=== PATIENT | male | born 1975 | race Caucasian/White ===

== ENCOUNTER → 2019-11-19 09:31 | Outpatient (CLI) | payer OTHER, SELFPAY ==
[2019-11-19 09:30] VITALS: BMI 29.0
--- NOTE | 2019-11-19 09:32 | RAD_ITS ---
STUDY: X-RAY - RIGHT WRIST REASON FOR EXAM: Male, 44 years old. 2.5 weeks ago felt a cramp in hand/wrist, pulled thumb to relieve cramp and has had pain in wrist ever since TECHNIQUE: 3 view(s) of the wrist were obtained. COMPARISON: None. FINDINGS: Normal visualized distal radius and ulna. Normal radiocarpal articulation. Normal distal radioulnar articulation. Normal carpal bones. Normal carpal articulations. Normal carpometacarpal articulation of the thumb. Normal second through fifth carpometacarpal articulations. Normal visualized metacarpal bones. Soft tissue swelling. RAD/Wrist min 3 Views IMPRESSION: Soft tissue swelling. Electronically Signed: Lloyd Lynn, at 10:32 EDT , Service support ,
== END ==
PROVIDERS: Referring Provider Physician Assistant; Visit Provider Physician Assistant
DX: M25.531 Pain in right wrist (principal)
CPT/HCPCS: 73110

== ENCOUNTER → 2022-04-24 | Outpatient (CLI) | payer OTHER, SELFPAY ==
--- NOTE | 2022-04-24 06:46 | MRI_ITS ---
STUDY: MRI LEFT HIP REASON FOR EXAM: Male, 46 years old. Chronic pain radiating into groin and knee. TECHNIQUE: Standardized fat and water weighted pulse sequences were obtained in all 3 orthogonal planes. COMPARISON: Hip x-rays dated March 26, 2022. FINDINGS: Mild loss of articular cartilage of both hips with small hip effusions (coronal series 5 images 12-22). . Normal gluteus minimus, medius and iliopsoas tendons and distal insertions. Bilateral greater trochanteric bursitis (coronal series 5 image 16). Normal superior and inferior pubic rami. Normal pubic symphysis. Normal ischial tuberosity. Normal origin of the hamstring tendons. Normal visualized iliac wing, sacroiliac joint, and sacral ala. Normal visualized soft tissue structures of the pelvis. MRI/Lower Ext Joint Only (Routine) IMPRESSION: Bilateral greater trochanteric bursitis. Mild arthrosis of both hips with small hip effusions. No other abnormality. Electronically Signed: Stewart Bowens, at 10:51 EST ,
== END | disposition home or self-care (01) ==
PROVIDERS: PCP Family Medicine; Referring Provider Chiropractor; Visit Provider Chiropractor
DX: M16.12 Unilateral primary osteoarthritis, left hip (principal)
CPT/HCPCS: 73721

== ENCOUNTER → 2024-02-08 | Outpatient (CLI) | payer OTHER, SELFPAY ==
--- NOTE | 2024-02-08 07:06 | MRI_ITS ---
INDICATION: pain, rule out LM tear EXAMINATION: MRI - RIGHT MR Knee W/O Contrast TECHNIQUE: Multiplanar and multisequence MR images of the RIGHT knee without contrast. IV Contrast Dosage and Agent: None. COMPARISON: Knee radiograph December 21, 2023. FINDINGS: BONE: No fracture or abnormal bone marrow signal. JOINT: Small effusion. No gross synovial hypertrophy, or intra-articular body. MUSCLES: Unremarkable. MENISCI: Medial meniscus is intact. Lateral meniscus posterior root ill-defined increased inferior T2 signal along the inferior ring, sagittal proton density image 21 and sagittal T2 image 12, coronal T2 image 11 CRUCIATE LIGAMENTS: Anterior and posterior cruciate ligaments are intact. COLLATERAL LIGAMENTS: Medial collateral ligament and lateral collateral ligamentous complex, inclusive of the popliteal tendon, are intact. CARTILAGE: Patellar apex full-thickness chondral fissure with mild medial facet subchondral edema.. OTHER SOFT TISSUES: Small Dhaliwal''s cyst 1.4 x 0.4 1.6 cm. Pes anserine tendons, semimembranosus, gastrocnemius tendons are intact. MRI/Lower Ext Joint Only (Routine) IMPRESSION: Lateral meniscal posterior root ill-defined increased signal extending to the inferior inner ring margin, nonspecific in appearance, possibly representing complex partial tear, contusion, or intrasubstance degeneration. Small knee joint effusion. 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 Small Dhaliwal''s cyst. Electronically Signed: Brandon Michael MD at 8:40 EDT ,
== END | disposition home or self-care (01) ==
LOC: MRI 07:03
PROVIDERS: PCP Family Medicine; Referring Provider Orthopaedic Surgery Sports Medicine; Visit Provider Orthopaedic Surgery Sports Medicine
DX: M25.561 Pain in right knee (principal)
CPT/HCPCS: 73721

== ENCOUNTER 2024-05-08 10:05 | Day surgery (SDC) | payer OTHER, SELFPAY ==
--- NOTE | 2024-04-29 14:04 | PAT.ANE_ITS ---
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 When Was Last Pacemaker Check QUESTION #4 FULL TEXT: You/Your Family Experience fever (hyperthermia) with Anesthesia Last Oral Intake Last Oral intake: Last Oral Intake NPO since Meds taken in AM with sips of water? Meds patient instructed to take am of surgery PONV PONV - field marketing director: PONV - field marketing director Female No 04/29/24 10:00 HX of Motion Sickness No 04/29/24 10:00 HX of N/V After Surgery No 04/29/24 10:00 Non-Smoker Yes 04/29/24 10:00 Duration of Surgery greater Yes 04/29/24 10:00 than 60 minutes Number of Risk Factors 2 04/29/24 10:00 PONV Score Moderate Risk 04/29/24 10:00 Respiratory Assessment Respiratory Assessment - field marketing director: Respiratory Tract Infection Hx - field marketing director Hx Respiratory Tract Infection No 04/29/24 10:00 STOP Sleep Apnea STOP Sleep Apnea - field marketing director: STOP Sleep Apnea - field marketing director Hx Hypertension No 04/29/24 10:00 Hx Sleep Apnea No 04/29/24 10:00 CPAP BIPAP Do you snore loudly (louder No 04/29/24 10:00 than talking or can be heard Do you often feel tired/ No 04/29/24 10:00 fatigued/ sleepy during daytime? Has anyone observed you stop No 04/29/24 10:00 breathing during sleep? STOP Results Negative 04/29/24 10:00 QUESTION #5 FULL TEXT : Do you snore loudly (louder than talking or can be heard through closed doors)? 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 Specify any problems Hx of Preganancy in last 3 N/A 04/29/24 10:00 Months Nurse Filling Out Transfusion NBUCHER 04/29/24 10:00 & Questions: Date: 04/29/24 04/29/24 10:00 Time: 10:01 04/29/24 10:00 Patient unable to answer at this time (ie. confused, unrespo /Reproduction History /Reproductive History - field marketing director: /Reproductive Hx- field marketing director Hx Now No 04/29/24 10:00 Gestational Age (in weeks): EDC: Hx Hx Para Hx Section SAB No 04/29/24 10:00 [facility] Medical History (Updated 04/29/24 @ 10:07 by Asya Nuñez) Wears glasses History of steroid therapy Seizures Cancer Non-smoker Cardiology follow-up encounter History of echocardiogram History of stress test Effusion, right knee Chondromalacia, right knee Tear of lateral meniscus of right knee Synovial cyst of popliteal space [Dhaliwal], right knee Right knee pain Right hip pain Home Medications ?Medication ?Instructions ?Recorded ?Last Taken ?Type acetaminophen 325 mg capsule 650 mg PO Q6H PRN pain 04/29/24 Unknown History diphenhydramine HCl 50 mg capsule 50 mg PO QHS 04/29/24 Unknown History (Sleep Aid (diphenhydramine)) psyllium husk 0.4 gram capsule 0.4 g PO DAILY 04/29/24 Unknown History (Daily Fiber) Allergy/AdvReac Type Severity Reaction Status Date / Time No Known Allergies Allergy Verified 04/29/24 09:58 Surgical History (Updated 04/29/24 @ 10:07 by Asya Nuñez) History of hand surgery History of meniscectomy of left knee (~2000) History of neck surgery (~2001) Social History household members: spouse Smoking Status: Never smoker alcohol intake: current alcohol intake frequency: holidays/special occasions only Audit: Pertinent Findings Pertinent Findings EKG Perinent findings: NSR 94 Stress test pertinent findings: spect 2020neg Echo (EF%) pertinent findings: EF 55% 02/19/20 Recommendation Anesthesia Recommendation Anesthesia recommendation: OPTIMIZED for anesthesia
[2024-05-08] VITALS (9 sets, daily range): BP systolic 111–137; BP diastolic 72–91; PULSE 60–84; RESP 14–16; TEMP 36.1–36.6; O2SAT 92–100; BMI 30.3
[2024-05-08] MEDS: 0.9% Normal Saline (1000mL) 1,000 ML 15 ML IV (10:47)
--- NOTE | 2024-05-08 11:34 | PCM.PRE.AN2 ---
ASA Classification* ASA Classification ASA Classification: 2 Assessment & Plan Anesthesia* Anesthesia Assessment Anesthesia Assessment: Discussed sedation and/or anesthesia options, risks, benefits, and alternatives with patient/parents/legal guardian/POA. Questions invited. The patient/parents/legal guardian/POA seems to understand and agrees to proceed with anesthesia plan. Reviewed the physical assessment, medical history, allergy history and patient home medications list prior to surgery/procedure/anesthetic and documented any changes. Performed airway and anesthesia risk assessments. Anesthesia Type Anesthesia Type: General History Source History Obtained from:: Patient and Chart Anesthesia Focused Assessment* Temperature: 97.9 F Pulse Rate: 63 Blood Pressure: 137/88 Respiratory Rate: 16 Pulse Ox: 98 Oxygen Delivery Method: Room Air Airway Assessment Mouth opens: >3 cm Mallampati Score: I Teeth Condition: Intact Neck Range of motion (ROM): Full ROM Focused Labs Anesthesia Preop lab: CBC CHEMISTRY COAG Pre-Assessment Diagnosis/Proposed Procedure Planned Operative Procedure(s): (R) Right knee Arthroscopy, lateral meniscus repair, possible partial meniscectomy Anesthesia History 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 When Was Last Pacemaker Check QUESTION #4 FULL TEXT: You/Your Family Experience fever (hyperthermia) with Anesthesia Last Oral Intake Last Oral intake: Last Oral Intake NPO since 06:30 05/08/24 10:36 Meds taken in AM with sips of No 05/08/24 10:36 water? Meds patient instructed to take am of surgery Any additional information?: Yes NPO since: 06:30 (Patient water and coffee at 6:30 AM.) PONV PONV - distributor sales manager: PONV - distributor sales manager Female No 04/29/24 10:00 HX of Motion Sickness No 04/29/24 10:00 HX of N/V After Surgery No 04/29/24 10:00 Non-Smoker Yes 04/29/24 10:00 Duration of Surgery greater Yes 04/29/24 10:00 than 60 minutes Number of Risk Factors 2 04/29/24 10:00 PONV Score Moderate Risk 04/29/24 10:00 Height & Weight Height & Weight: Anesthesia: Height & Weight Height 6 ft 1 in 05/08/24 10:36 Weight: 104.3 kg 05/08/24 10:36 Body Mass Index (BMI) 30.3 05/08/24 10:36 Respiratory Assessment Respiratory Assessment - distributor sales manager: Respiratory Tract Infection Hx - distributor sales manager Hx Respiratory Tract Infection No 04/29/24 10:00 STOP Sleep Apnea STOP Sleep Apnea - distributor sales manager: STOP Sleep Apnea - distributor sales manager Hx Hypertension No 04/29/24 10:00 Hx Sleep Apnea No 04/29/24 10:00 CPAP BIPAP Do you snore loudly (louder No 04/29/24 10:00 than talking or can be heard Do you often feel tired/ No 04/29/24 10:00 fatigued/ sleepy during daytime? Has anyone observed you stop No 04/29/24 10:00 breathing during sleep? STOP Results Negative 04/29/24 10:00 QUESTION #5 FULL TEXT : Do you snore loudly (louder than talking or can be heard through closed doors)? 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 Specify any problems Hx of Preganancy in last 3 N/A 04/29/24 10:00 Months Nurse Filling Out Transfusion NBUCHER 04/29/24 10:00 & Questions: Date: 04/29/24 04/29/24 10:00 Time: 10:01 04/29/24 10:00 Patient unable to answer at this time (ie. confused, unrespo /Reproduction History /Reproductive History - distributor sales manager: /Reproductive Hx- distributor sales manager Hx Now No 04/29/24 10:00 Gestational Age (in weeks): EDC: Hx Hx Para Hx Section SAB No 04/29/24 10:00 Active Medications Active Medications: Current Medications Generic Name Dose Route Start Last Admin Trade Name Freq PRN Reason Stop Dose Admin Cefazolin Sodium 2 gm/ N/A 20 mls @ 400 mls/hr 05/08/24 11:50 IV 05/08/24 11:52 PREOP ONE Sodium Chloride 1,000 mls @ 15 mls/hr 05/08/24 10:15 05/08/24 10:47 IV 05/13/24 23:34 15 mls/hr .Q48H GENIE Administration Protocol [facility] Medical History Wears glasses History of steroid therapy Seizures Cancer Non-smoker Cardiology follow-up encounter History of echocardiogram History of stress test Effusion, right knee Chondromalacia, right knee Tear of lateral meniscus of right knee Synovial cyst of popliteal space [Dhaliwal], right knee Right knee pain Right hip pain Home Medications ?Medication ?Instructions ?Recorded ?Last Taken ?Type acetaminophen 325 mg capsule 650 mg PO Q6H PRN pain 04/29/24 Unknown History diphenhydramine HCl 50 mg capsule 50 mg PO QHS 04/29/24 Unknown History (Sleep Aid (diphenhydramine)) psyllium husk 0.4 gram capsule 0.4 g PO DAILY 04/29/24 Unknown History (Daily Fiber) Allergy/AdvReac Type Severity Reaction Status Date / Time No Known Allergies Allergy Verified 05/08/24 10:33 Surgical History History of hand surgery History of meniscectomy of left knee (~2000) History of neck surgery (~2001) Social History household members: spouse Smoking Status: Never smoker alcohol intake: current alcohol intake frequency: holidays/special occasions only Review of Systems (Anesthesia) ROS Narrative System reviewed and no additional complaints, except as documented.
--- NOTE | 2024-05-08 12:01 | PCM.HP.STD ---
HPI - General HPI Narrative BEST FERGUSON, is a 48 M who presents for right knee arthroscopy lateral meniscus repair possible partial meniscectomy. no changes to h and p. right knee marked. rab, post op instructions, possible surgical decisions intra op, and narcotic counselling. ok to proceed. no further questions or concerns. MR#: [id number] Acct: [id number] Name: BEST FERGUSON Rep #: [id number] : 1975 Provider: Dr. Dick Webber MD Age/Sex: 48/M Location: [facility] [place] Status: Signed Intake Vital Signs 11/18/2008:30 Height 6 ft 1 in Intake Visit Reasons: RIGHT KNEE Chief Complaint: right knee Accompanied by: Self Is patient in pain?: Yes Pain scale (1-10): 8 Allergies No Known Allergies Allergy (Unverified 03/31/24 15:47) Medications ?Medication ?Instructions ?Recorded ?Confirmed ?Type prednisone 5 mg tablets in a dose See Rx Instructions PO PER PKG DIR 03/31/24 03/31/24 Rx pack #48 tabs PFSH Medical History Effusion, right knee Chondromalacia, right knee Tear of lateral meniscus of right knee Synovial cyst of popliteal space [Dhaliwal], right knee Right knee pain Right hip pain Social History household members: spouse Smoking Status: Never smoker alcohol intake: current alcohol intake frequency: holidays/special occasions only HPI RIGHT KNEE Details: This documentation accurately reflects the service provided and the decisions made by me, Dr. Dick Webber MD 03/31/24 [id number]. Part of today?s visit was documented by [ ], acting as scribe. BEST FERGUSON is a 48 year old M here today for follow-up right knee lateral meniscus tear chondromalacia of the patella. Patient still has intermittent effusions as well as pain mostly posterior laterally about the knee but also some mild pain anteriorly. Supplemental Info [facility] Imaging Services [address], [place] [id number] Lower Ext Joint Only (Routine) MR#: [id number] Acct: [id number] Name: BEST FERGUSON Rep #: [id number] : 1975 M 48 From: Brandon Michael MD PCP: Dr. Mau Sherwood MD Status: REG CLI Study: Lower Ext Joint Only (Routine) Date of Exam: 02/08/24 Exam# [id number] Ordering Dr: Dick Webber MD INDICATION: pain, rule out LM tear EXAMINATION: MRI - RIGHT MR Knee W/O Contrast TECHNIQUE: Multiplanar and multisequence MR images of the RIGHT knee without contrast. IV Contrast Dosage and Agent: None. COMPARISON: Knee radiograph December 21, 2023. FINDINGS: BONE: No fracture or abnormal bone marrow signal. JOINT: Small effusion. No gross synovial hypertrophy, or intra-articular body. MUSCLES: Unremarkable. MENISCI: Medial meniscus is intact. Lateral meniscus posterior root ill-defined increased inferior T2 signal along the inferior ring, sagittal proton density image 21 and sagittal T2 image 12, coronal T2 image 11 CRUCIATE LIGAMENTS: Anterior and posterior cruciate ligaments are intact. COLLATERAL LIGAMENTS: Medial collateral ligament and lateral collateral ligamentous complex, inclusive of the popliteal tendon, are intact. CARTILAGE: Patellar apex full-thickness chondral fissure with mild medial facet subchondral edema.. OTHER SOFT TISSUES: Small Dhaliwal''s cyst 1.4 x 0.4 1.6 cm. Pes anserine tendons, semimembranosus, gastrocnemius tendons are intact. MRI/Lower Ext Joint Only (Routine) IMPRESSION: Lateral meniscal posterior root ill-defined increased signal extending to the inferior inner ring margin, nonspecific in appearance, possibly representing complex partial tear, contusion, or intrasubstance degeneration. Small knee joint effusion. 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 Small Dhaliwal''s cyst. Electronically Signed: Brandon Michael MD at 8:40 EDT , Coding Level of Care Code Off vis,est,level 3 Diagnoses Effusion, right knee M25.461 Chondromalacia, right knee M94.261 Tear of lateral meniscus of right knee S83.281A Synovial cyst of popliteal space [Dhaliwal], right knee M71.21 Right knee pain M25.561 Assessment and Plan Assessment and Plan (1) Effusion, right knee: Status: Acute Plan: 48-year-old man with right knee effusion chondromalacia the patella as well as small Dhaliwal's cyst and a tear near the posterior root of the lateral meniscus. We had a prior discussion on the op vs non op options. Meniscus repair would not treat pain from the patellar chondromalacia, but can treat the pain and swelling, and prevent further tearing and degeneration. Patient would like to try a short course of tapering prednisone I explained the risks associate with that and side effects. I explained to the patient the diagnosis prognosis of treatment options available include but not limited to rest ice anti-inflammatories active modifications cortisone injections as well as surgical intervention. In my hands surgery be in the form of a right knee arthroscopy lateral meniscus repair possible partial meniscectomy. This may necessitate root repair, usually I use Arthrex suture lock implants and all inside implants. I explained recovery associate with this 6 weeks brace with restricted weightbearing and 3 months overall recovery. Pros and cons risks and benefits were discussed with the patient including but not limited to infection, pain, stiffness, bleeding, damage to surrounding structures, neurovascular injury, recurrence or retear, failure or wear of hardware or fixation, instability, fracture, deep vein thrombosis and pulmonary embolism, anesthetic risks, , patient dissatisfaction, need for further surgery and other risks. Patient understood and wished to proceed with surgery, and signed the informed consent documentation. (2) Chondromalacia, right knee: Status: Acute (3) Tear of lateral meniscus of right knee: Status: Acute (4) Synovial cyst of popliteal space [Dhaliwal], right knee: Status: Acute (5) Right knee pain: Status: Acute Medications: New prednisone PO PER PKG DIR 48 tabs 0RF M25.461 - Effusion, right knee, M25.561 - Pain in right knee, M71.21 - Synovial cyst of popliteal space [Dhaliwal], right knee, M94.261 - Chondromalacia, right knee, S83.281A - Other tear of lateral meniscus, current injury, right knee, initial encounter Ortho Exam General General: Yes no acute distress Neurologic: Yes alert and Yes oriented x3 Psychologic: Yes reasonable and appropriate Right Knee Skin/Wound: Yes CDI, No erythema, No ecchymosis and No swelling Contralateral Normal: Yes 1+: Effusion Quad Atrophy: No Patella Translation: 2 Apprehension with Lateral Translation: No Patellar Tilt Normal: Yes Patella Grind: No KNEE: nvi, slight antalgic gait, normal alignment. Left Knee Patella Translation: 2 PFSH Medical History Wears glasses History of steroid therapy Seizures Cancer Non-smoker Cardiology follow-up encounter History of echocardiogram History of stress test Effusion, right knee Chondromalacia, right knee Tear of lateral meniscus of right knee Synovial cyst of popliteal space [Dhaliwal], right knee Right knee pain Right hip pain Home Medications ?Medication ?Instructions ?Recorded ?Last Taken ?Type acetaminophen 325 mg capsule 650 mg PO Q6H PRN pain 04/29/24 Unknown History diphenhydramine HCl 50 mg capsule 50 mg PO QHS 04/29/24 Unknown History (Sleep Aid (diphenhydramine)) psyllium husk 0.4 gram capsule 0.4 g PO DAILY 04/29/24 Unknown History (Daily Fiber) Allergy/AdvReac Type Severity Reaction Status Date / Time No Known Allergies Allergy Verified 05/08/24 10:33 Surgical History History of hand surgery History of meniscectomy of left knee (~2000) History of neck surgery (~2001) Social History household members: spouse Smoking Status: Never smoker alcohol intake: current alcohol intake frequency: holidays/special occasions only Vital Signs Vital Signs Vital Signs: 05/08/24 10:36 05/08/24 10:36 05/08/24 11:42 Temperature 97.9 F 97.9 F Temperature Source Temporal Pulse Rate 63 63 Respiratory Rate 16 16 Respiratory Pattern Normal Blood Pressure 137/88 H 137/88 H Blood Pressure Mean 104 Blood Pressure Source Monitor Blood Pressure Position Semi-Fowlers Blood Pressure Location Left Arm Pulse Ox 98 98 Oxygen Delivery Method Room Air Room Air Weight Weight: 229 lb 15.074 oz Body Mass Index (BMI) 30.3
[2024-05-08] MEDS: Cefazolin 2 GM in Syringe IV (12:15)
[2024-05-08] MEDS: Epinephrine (1 mg/ml) 1 MG/ML VIAL (12:43)
[2024-05-08] MEDS: Bupivacaine 0.25% 30 ML Vial (13:10)
--- NOTE | 2024-05-08 13:46 | EX.PCM.DISCH ---
Discharge Instructions Diet Discharge Diet: No restrictions Activity Discharge Activity: Use Crutches (non weight bearing 6 weeks) Ice area for (Minutes): 10 Weight Bearing Status: No weight bearing Keep extremity elevated above heart level: Operative Extremity Dressing / Incision Call your doctor if your incision/area has: Continuous Slow Oozing, Sudden Increased Bleeding, Increased Pain/ Swelling, Increased Redness, Foul Smelling Discharge and Swelling at the incision site Call your doctor if you observe: Fever of 101 or Higher, Coldness, Increased Pain and Numbness or Tingling Remove Dressing in: leave in place till F/U Cleanse incision/area with: Do not get Incision Wet Follow Up Care Please Follow Up With: Dick Webber MD When: next week Test Results: Test results from this visit will be discussed in further detail at your follow-up appointment, if applicable. Discharge Plan Admission Attending Provider: Dick Webber Primary Care Provider: Mau Sherwood Instructions Print Language: Eritrean Discharge Orders/Prescriptions Prescriptions: New oxycodone-acetaminophen [Endocet] 5-325 mg tablet 1 tab PO Q4H MDD 6 PRN (Reason: pain) 3 Days Qty: 20 0RF No Action psyllium husk [Daily Fiber] 0.4 gram capsule 0.4 g PO DAILY diphenhydramine HCl [Sleep Aid (diphenhydramine)] 50 mg capsule 50 mg PO QHS acetaminophen 325 mg capsule 650 mg PO Q6H PRN (Reason: pain) Referrals / Follow Up: Dick Webber MD [Med Staff - Active Staff] - Mau Sherwood MD [Primary Care Provider] - Disposition Disposition (needs filled in before D/C Order can be placed): Home, Self Care
--- NOTE | 2024-05-08 13:48 | OP.PCM_ITS ---
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: No Type of Anesthesia: General and Local RN Documented Start/Stop Times: Operation Date: 05/08/24 11:50 Case Time Into Pre-Op 05/08/24 10:11 Out of Pre-Op 05/08/24 12:11 Anesthesia Start 05/08/24 12:15 Into Room 05/08/24 12:15 Procedure Start 05/08/24 12:34 Procedure End 05/08/24 13:35 Anesthesia End 05/08/24 13:43 Out of Room 05/08/24 13:43 Into Recovery 05/08/24 13:45 Procedure Start Time: 12:34 Procedure Stop Time: 13:35 Select all DRAINS/GRAFTS/IMPLANTS that apply: Implanted device Implanted device details: Arthrex sutureloc and fiber stitch all inside repair device Estimated Blood Loss: 20 Specimen collected: No Description of surgery: Patient brought to the operating room theater. Placed supine on the table. 2 g IV Ancef administered prior to the start of the case. General anesthesia induced. All bony prominences padded. SCD on the nonoperative leg. Tourniquet applied to the right thigh appropriately padded. Stress positioner to the patient's right side. Lower extremity prepped and draped in the usual sterile fashion allowing over 3 minutes drying time prior to draping. Preoperative timeout performed to confirm the site patient and the surgery. Began by using anterior lateral and anteromedial arthroscopy portals did a full diagnostic arthroscopy. Cartilage of the trochlea and undersurface of the patella were normal. Cartilage was normal in the medial and lateral compartments aside from a focal area of grade 3-4 changes at the posterior aspect of the lateral tibial plateau at the root tear. Medial compartment was normal. Medial meniscus was normal probed stable and solid no tears. Ligamentum mucosum was debrided and removed the ACL and PCL appeared normal and stable. Lateral compartment was entered again there was a lateral root tear with fraying the area gently debrided that area prepared the tibial plateau for repair. There was also a small undersurface component of the tear vertically oriented. I used the Arthrex sutureloc drill guide I passed the pin up into the base of the lateral tibial plateau at the meniscus posterior root tear area. I then remove the inner trocar sleeve and then passed the nitinol wire out through the lateral portal that I had placed a passport cannula. I then shuttled the suture lock implant below the tibial plateau and deployed the implant by pulling on the distal suture. I then passed the repair sutures in a simple configuration and then converted the suture and pulled distally to fixate the meniscus root using the 2 repair sutures. The implant was cut short. Repair was probed and found to be stable and solid. I did sequential tightening on both sides as well prior to cutting the suture distally. I then also placed vertical mattress suture Arthrex all inside fiber stitch using 2-0 suture nonabsorbable sutures. Again this held the meniscus stable and solid I shorten this up to about 14 mm in depth as well and aimed away from the vessels / nerve / popliteus. I used an accessory anterolateral portal for suture management. final arthroscopy pictures taken and saved throughout the case. Tourniquet let down hemostasis achieved wound thoroughly irrigated. Portals closed with 3-0 Monocryl suture. 10 cc of quarter percent bupivacaine instilled in around the soft tissue sites. Knee cleaned with wet dry dressing followed application of Steri-Strips Adaptic 4 x 4 gauze ABD dressing Albin wrap and hinged knee brace locked in full extension. Patient woken up from a general anesthetic transferred off the operating table and taken to postanesthetic care unit in stable condition. All sponge needle answer counts were correct no complications plan to the patient nonweightbearing with crutches with a knee brace in full extension and follow-up in the office next week. CPT 26034 Surgical Findings: lateral meniscus root tear Complications Complications: No Admit VTE Documentation VTE Present on Admission: No VTE Mechan Device Prophylaxis: SCD's VTE Pharm Prophylaxis ordered?: No Reason prophylaxis not ordered: Treatment Not Indicated (very active patient, no hx, non smoker, counselled on decision)
--- NOTE | 2024-05-08 13:54 | PCM.POST.ANE ---
Anesthesia: Postop Eval I Current Vital Signs Temperature: 97 F Pulse Rate: 84 Blood Pressure: 126/91 Respiratory Rate: 14 Pulse Ox: 95 Oxygen Delivery Method: Room Air Assessment Airway patent: Yes Spontaneous unlabored respirations: Yes Mental status: Awake and Calm nausea: No Vomiting: No Anesthesia Complication: No Fluid Hydration Crystalloid volume administer (ml): 700 Total IV fluid infused: 700 Progress Note Anesthesia document: Postop Eval 1 completed: Yes
--- NOTE | 2024-05-08 14:02 | PCM.POSTANE2 ---
Anesthesia Postop Eval I Sum Postop Eval Completion status Anesthesia document: Postop Eval 1 completed: Yes Anesthesia Postop Eval I Summary Anesthesia Postop Eval I Summary: Anesthesia Postop Eval I: Assessment Summary Airway patent Yes 05/08/24 13:55 [email or web address] Spontaneous unlabored Yes 05/08/24 13:55 [email or web address] respirations Mental status Awake,Calm 05/08/24 13:55 [email or web address] nausea No 05/08/24 13:55 [email or web address] Vomiting No 05/08/24 13:55 [email or web address] Anesthesia Postop Eval I: Fluid Summary Crystalloid volume administer 700 05/08/24 13:55 [email or web address] (ml) Colloids volume administered ( ml) Blood Product volume administered (ml) Total IV fluid infused 700 05/08/24 13:55 [email or web address] Anesthesia Postop Eval I: Summary Notes Anesthesia Complication No 05/08/24 13:55 [email or web address] Anesthesia Complication Comment: Post-operative progress note Anesthesia: Postop Eval II Evaluation Mental status: Awake and Calm Pain Level: 2 nausea: No Vomiting: No Complications Anesthesia Complication: No
[2024-05-08] MEDS: HYDROcodone Bitartrate/Apap 5/325 Tablet PO (14:50)
== END 2024-05-08 15:48 | disposition home or self-care (01) ==
LOC: SDC 10:10 → AC 10:11
PROVIDERS: PCP Family Medicine; Referring Provider Orthopaedic Surgery Sports Medicine; Visit Provider Orthopaedic Surgery Sports Medicine
PROC: (CPT 29870; principal; 2024-05-08 11:30)
DX: S83.281A Other tear of lateral meniscus, current injury, right knee, initial encounter (principal); M94.261 Chondromalacia, right knee; M25.461 Effusion, right knee; M71.21 Synovial cyst of popliteal space [Baker], right knee; X58.XXXA Exposure to other specified factors, initial encounter
CPT/HCPCS: 29882; 01400; C1713; J2405